=== PATIENT | male | born 2000 | race Two or more races ===

== ENCOUNTER 2023-07-28 19:08 | Emergency (ER) | payer OTHER | END 2023-07-28 20:20 | disposition left against medical advice (07) | LOC: EMS 19:10 | DX: F11.23 Opioid dependence with withdrawal (principal); Z53.21 Procedure and treatment not carried out due to patient leaving prior to being seen by health care provider | CPT/HCPCS: 99281; Z7502 ==

== ENCOUNTER 2024-06-30 15:15 | Emergency (ER) | payer OTHER ==
[~2024-06-30] VITALS: Ht 177.8 cm; Wt 72.7 kg
[2024-06-30 15:57] VITALS: TEMP 98.7
[2024-06-30] MEDS: BUPRENORPHINE HCL/NALOXONE HCL 8-2 MG SUBLINGUAL TABLET SL ONE (17:11)
[2024-06-30 18:02] VITALS: BP 114/67; PULSE 91; RESP 16
== END 2024-06-30 18:33 | disposition home or self-care (01) ==
LOC: EMS 15:17
DX: F11.23 Opioid dependence with withdrawal (principal); R10.9 Unspecified abdominal pain; R19.7 Diarrhea, unspecified; J45.909 Unspecified asthma, uncomplicated; Z91.013 Allergy to seafood
CPT/HCPCS: 99283